=== PATIENT | male | born 1955 | race Caucasian/White ===

== ENCOUNTER 2017-04-12 00:21 | Day surgery (SDC) | payer BC ==
[~2017-04-12] VITALS: Ht 175.3 cm; Wt 89.4 kg
[~2017-04-12 00:21] MED LIST: DIA5 PO; HYDR-385 PO; LISI-355 PO; LISI-362 PO; OXYC-865 PO; SILD100T59 PO; TEST100V5 IM; TEST100V6 IM; ceFAZolin(*) 2GM/D5W 50ML 50 ML IVPB ONE
[2017-04-12 10:19] VITALS: BP 139/84
[2017-04-12] MEDS ORDERED: NEOMYCIN/POLYMYX/BACITR 30 GM TP ONE (10:52)
[2017-04-12] MEDS ORDERED: ROPIVACAINE 0.2% 20 ML VIAL ONE (10:52)
[2017-04-12] MEDS ORDERED: PROPOFOL EMUL(*) 10MG/ML 20 ML 40 ML ONE (12:07)
[2017-04-12] MEDS ORDERED: LIDOCAINE MPF 1% 5 ML VIAL ONE (12:07)
[2017-04-12] MEDS ORDERED: ONDANSETRON 4 MG/2 ML VIAL ONE (12:18)
[2017-04-12] MEDS ORDERED: DEXAMETHASONE SOD PHOS 10MG/ML ONE (12:18)
[2017-04-12] MEDS ORDERED: fentaNYL CITR 100 MCG/2 ML AMP ONE ×4 (12:19→14:30)
[2017-04-12] MEDS ORDERED: KETOROLAC 30 MG/ML VIAL ONE (14:08)
[2017-04-12] MEDS ORDERED: LIDOCAINE/SOD BICARB 8.4% SYR ID ONE (14:10)
[2017-04-12] MEDS ORDERED: NORMOSOL R SOLN(*) 1000 ML BAG 1,000 ML IV PRN (14:10)
[2017-04-12] MEDS ORDERED: FAMOTIDINE 20 MG TAB PO ONE (14:10)
[2017-04-12] MEDS ORDERED: ceFAZolin(*) 2GM/D5W 50ML 50 ML IVPB ONE (14:10)
[2017-04-12] MEDS ORDERED: MIDAZOLAM 2 MG/2 ML VIAL IVP PRN (14:10)
[2017-04-12] MEDS ORDERED: CELECOXIB 200 MG CAP PO ONE (14:10)
[2017-04-12] MEDS ORDERED: PER PO (14:52)
[2017-04-12] MEDS ORDERED: CEPH500T7 PO (14:53)
[2017-04-12] MEDS ORDERED: HYDROmorphone HCL 2 MG/ML SDV ONE (14:59)
[2017-04-12 15:23] VITALS: BP 143/83
[2017-04-12 15:49] VITALS: BP 133/81
[2017-04-12 16:22] VITALS: BP 139/84
[2017-04-12 16:40] VITALS: BP 140/89
[2017-04-12 16:45] VITALS: BP 135/86
--- NOTE | 2017-04-13 16:04 | OPERATIVE REPORT 1 ---
EVENT DATE: April 12, 2017 SURGEON: Reuben Hoffman MD ANESTHESIOLOGIST: Brown Curtis MD ANESTHESIA: General. 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 POSTOPERATIVE DIAGNOSIS Severe degenerative joint disease of the right elbow with large osteophytes blocking motion and significant pain, particularly at the radiocapitellar joint. PROCEDURES PERFORMED 1. Non-implant ulnohumeral arthroplasty with resection of bone spurs about coronoid and olecranon fossae with excision of osteophytes at proximal ulnar ( olecranon and coronoid) with full capsular release. 2. Radial head arthroplasty. ESTIMATED BLOOD LOSS 50 INTRAVENOUS FLUIDS Crystalloid 1000. No colloid. TOURNIQUET TIME 77 SPECIMENS No specimens. COMPLICATIONS No complications. IMPLANTS USED [employer] Align radial head with a 10 mm stem, a 2 mm neck, and a 26 mm head. SUMMARY OF PROCEDURE The patient was brought into the operating room and placed on the OR table in the supine position. After obtaining adequate general anesthesia and having prepped the right upper extremity, the C-arm was brought in to position. We marked the fovea of the ulnar head. We also assessed the level of osteophyte formation using fluoroscopy to see how much of the olecranon spur had formed and also how closed off the fossa may be. We then proceeded to reopen the same incision that had been used previously on the lateral side. This was deepened through skin and subcutaneous tissue. We then incised fascia and exposed the distal humeral shaft. A leal elevator was used to free up the tissue on the superficial surface, and I completely freed up the capsule from this structure all the way across, taking care to stay directly on bone so that the risk to the ulnar nerve would be minimal. There were large osteophytes in the region anteriorly and posteriorly. We worked primarily anteriorly at first, removed some osteophyte off of the coronoid process, as well as clearing out the coronoid fossa with a large bur. This wound was irrigated, and then we moved on to the posterior side. We took care to keep the lateral ulnar collateral ligament intact and then exposed posteriorly. There was a large olecranon osteophyte which was removed, and after taking it out, I looked again on the x- ray and, unfortunately, we still had some left in place. We did a couple more passes with osteotomes until I could confirm that we had gotten it all the way from lateral to medial and freed it up. During this process, no detachment of the triceps was undertaken. We then exposed the bone spurs at the olecranon fossa and once again used a bur to remove a large amount of this. I chose not to do a formal Outerbridge-Kashiwagi procedure because it did not look like it would be necessary. This wound was once again irrigated. We then directed our attention to the radial head. We used the measuring tool to indicate a 2 mm stem length and made a cut on the radial neck after having fully exposed the fascia and dividing the annular ligament while protecting the radial nerve. We then progressively reamed beginning with a small reamer, moving all the way up until we got good cortical chatter at 10, and then we did a surface planing. We rechecked the position, and 2 mm still looked good. The resected head measured greater than the largest head available, so we dropped down to a size 26, but when you consider that there was a great deal of osteophyte formation, the 26 head would actually work quite well for him. We trialed, and then once we confirmed with the C-arm that there was no overstuffing, we went ahead with this implant, assembled it, and then assembled in situ as well, after which we used the alignment jig to target the fovea of the ulnar head and lock down the position. We then checked supination and pronation. It worked very well. There was no gap formation in any position. The wound was irrigated extensively. We then closed the annular ligament with 0 FiberWire suture, including some of the capsule, and then moved to 0 Vicryl for the fascial incision, after which we deflated the tourniquet, controlled bleeding with bipolar cautery, and closed skin with 3-0 Vicryl, followed by brandon. He was placed in a resting splint at 90 degrees. He was awakened and transferred to the recovery area in stable condition. KAYLIE
== END 2017-04-12 15:21 | disposition home or self-care (01) ==
LOC: OR 00:21
PROVIDERS: ATTEND Orthopaedic Surgery Hand Surgery
DX: M19.021 Primary osteoarthritis, right elbow (principal); M25.721 Osteophyte, right elbow
CPT/HCPCS: 24363; 76000; 94667; C1768; C1776; J1100; J1170; J1885; J2001; J2250; J2405; J2704; J2795; J3010; J0690